=== PATIENT | female | born 1970 | race Caucasian/White ===

== ENCOUNTER 2020-05-20 11:02 | Emergency (ER) | payer BC, OTHER ==
[~2020-05-20] VITALS: Ht 154.9 cm; Wt 65.8 kg
[~2020-05-20 11:02] MED LIST: CELEXA10 MG PO; NOHOMEMEDICATIONS; PERCOCET 5-3251 EACH PO; ZOFRAN ODT4 MG PO
[2020-05-20 11:16] LABS: URINE BLOOD NEGATIVE (Negative); URINE CLARITY CLEAR; URINE COLOR YELLOW; URINE GLUCOSE-RANDOM NEGATIVE (Negative); URINE KETONES 1+ (Negative); URINE LEUKOCYTES-REFLEX TRACE (Negative); URINE NITRITE-REFLEX NEGATIVE (Negative); URINE PROTEIN 1+ (Negative); URINE SPECIFIC GRAVITY >= 1.030 (1.005-1.030); URINE UROBILINOGEN 0.2 E.U./dl (0.2-1.0)
[2020-05-20 11:20] LABS: ICTOTEST (BILI CONFIRMATORY) Negative (Negative); URINE BILIRUBIN 1+ (Negative)
[2020-05-20 11:22] LABS: SQUAMOUS >10 Many /LPF (0-3)
[2020-05-20 11:23] LABS: URINE WBC-REFLEX 6-15 Few /HPF (0-5)
[2020-05-20 11:24] LABS: AMORPHOUS URATES Many /LPF (None Seen); CASTS None Seen /LPF (None Seen); MUCUS None Seen strn/LPF (None Seen); URINE RBC 0-2 Rare /HPF (0-2)
[2020-05-20 11:37] LABS: CALCIUM 8.7 mg/dL (8.5-10.1); CREATININE 0.9 mg/dL (0.6-1.3); POTASSIUM 3.6 mmol/L (3.5-5.1)
[2020-05-20 11:41] LABS: TOTAL BILIRUBIN 0.7 mg/dL (<0.1-1.0)
[2020-05-20 11:44] LABS: ABSOLUTE BASOPHILS 0.1 thou/uL (0.0-0.2); ABSOLUTE EOSINOPHILS 0.1 thou/uL (0.0-0.7); ABSOLUTE LYMPHOCYTES 1.5 thou/uL (0.8-5.3); ABSOLUTE MONOCYTES 0.5 thou/uL (0.0-1.2); ABSOLUTE NEUTROPHILS 6.4 thou/uL (1.6-8.1); BASOPHILS 1.1 %; EOSINOPHILS 1.1 %; HEMATOCRIT 47.9 % (37.0-47.0); HEMOGLOBIN 16.1 gm/dL (12.0-15.0); LYMPHOCYTES 17.5 %; MCH 30.9 pg (26.0-34.0); MCHC 33.6 g/dL (28.0-37.0); MCV 91.8 fL (80.0-100.0); MONOCYTES 5.4 %; MPV 10.1 fl. (7.2-11.1); NUCLEATED RBCS 0 /100WBC; PLATELET COUNT* 225 thou/uL (150-400); POLYS 74.9 %; RBC 5.22 mil/uL (4.20-5.00); RDW-CV 12.9 % (10.5-14.5); WBC 8.5 thou/uL (4.0-11.0)
[2020-05-20] MEDS ORDERED: ONDANSETRON ODT4 MG PO (14:32)
[2020-05-20] MEDS ORDERED: BACTRIM DS TAB1 EACH PO (14:32)
[2020-05-20] MEDS ORDERED: NORCO 5-325 TA1 EAC2 PO (14:32)
[2020-05-20 14:49] VITALS: BP 125/59
== END 2020-05-20 14:50 | disposition home or self-care (01) ==
LOC: M.ERS 11:02
PROVIDERS: Physician Assistant
DX: N39.0 Urinary tract infection, site not specified (principal); D27.1 Benign neoplasm of left ovary; F32.9 Major depressive disorder, single episode, unspecified; Z90.49 Acquired absence of other specified parts of digestive tract; Z87.442 Personal history of urinary calculi; Z79.899 Other long term (current) drug therapy; Z88.5 Allergy status to narcotic agent